=== PATIENT | male | born 1930 | race Caucasian/White ===

== ENCOUNTER 2016-11-16 13:36 | Inpatient (IN) | payer OTHER ==
[~2016-11-16] VITALS: Ht 172.7 cm; Wt 87.0 kg
[~2016-11-16 13:36] MED LIST: ASPIR 8181 M1 PO; BACTRIM,SEPT1 TABLET PO; CARVEDILOL3.125 MG PO; CELEBREX200 MG PO; CELECOXIB200 MG PO; CENTRUM SILVER1 EAC1 PO; CILOSTAZOL50 MG PO; CINNAMON PLUS1 EACH PO; COSAMIN ASU CA1 EAC1 PO; COSAMIN ASU CA1 EACH PO; CRESTOR20 MG PO; ESCITALOPRAM OX20 MG PO; FERROUS SULFAT325 MG PO; FISH OIL 1,0001 EAC8 PO; HYDROCODON-ACE1 EAC7 PO; IRON325 M1 PO; LEXAPRO10 MG PO; LISINOPRIL20 MG PO; LO-DOSE ASPIRIN81 M1 PO; LOSARTAN POTAS100 MG PO; LOVENOX40 MG/0.4 SC; MYSOLINE50 MG PO; OMEGA-3 FISH O1 EAC6 PO; OS-CAL 500+D T1 EAC1 PO; PEN-VEE K,VEET500 MG PO; PLAVIX75 MG PO; PRESERVISIO1 CAPSULE PO; PRINIVIL20 MG PO; SENNA PLUS TAB1 EACH PO; VITAMIN B-1100 MG PO; XARELTO20 MG PO
[2016-11-16 14:38] LABS: HEMATOCRIT 44.8 % (38.0-50.0); MCH 30.6 PG (29.0-34.0); MCHC 34.4 G/DL (30.0-36.0); MCV 88.9 FL (86-99); MEAN PLAT.VOLUME 9.5 uM^3 (9.0-12.4); PLATELET COUNT 197 K/uL (156-360); RBC DIS.WIDTH-CV 13.4 % (11.8-14.6); RBC DIS.WIDTH-SD 43.3 % (39-53); RED BLOOD COUNT 5.04 M/uL (4.00-5.50); WHITE BLOOD COUNT 7.7 K/uL (4.1-10.2)
[2016-11-16 14:46] LABS: CHLORIDE 105 mEq/L (99-109); POTASSIUM 4.6 mEq/L (3.7-5.4); SODIUM 139 mEq/L (136-147)
[2016-11-16 14:48] LABS: GLUCOSE 112 mg/dL (70-99)
[2016-11-16 14:49] LABS: ANION GAP 12 MEQ/L (2-14)
[2016-11-16 14:52] LABS: GFR ESTIMATE (CALCULATED) > 59 mL/min/; UREA NITROGEN (BUN) 24 mg/dL (9-23)
[2016-11-16 14:59] LABS: TROP-I INTERPRETATION NEGATIVE; TROPONIN-I 0.02 ng/mL (0.0-0.30)
[2016-11-16] MEDS ORDERED: LOSARTAN POTASS50 MG PO (18:02)
[2016-11-16 21:49] VITALS: BP 103/69
[2016-11-16 22:12] LABS: TROP-I INTERPRETATION NEGATIVE; TROPONIN-I 0.03 ng/mL (0.0-0.30)
[2016-11-17] VITALS (7 sets, daily range): BP systolic 103–142; BP diastolic 59–86
[2016-11-17 03:58] LABS: TROP-I INTERPRETATION NEGATIVE; TROPONIN-I 0.04 ng/mL (0.0-0.30)
[2016-11-18 03:29] VITALS: BP 127/86
[2016-11-18 05:44] LABS: ANION GAP 4 MEQ/L (2-14); CHLORIDE 105 MEQ/L (99-109); GFR ESTIMATE (CALCULATED) > 59 mL/min/; GLUCOSE 110 mg/dL (70-99); POTASSIUM 4.5 MEQ/L (3.7-5.4); SAMPLE HEMOLYSIS CHECK 0; SAMPLE ICTERIC CHECK 0; SAMPLE LIPEMIA CHECK 0; SODIUM 139 MEQ/L (136-147); UREA NITROGEN (BUN) 22 mg/dL (9-23)
[2016-11-18 07:40] VITALS: BP 153/92
[2016-11-18 11:46] VITALS: BP 138/91
[2016-11-18 16:00] VITALS: BP 160/72
[2016-11-18] MEDS ORDERED: DIGOXIN125 MCG PO (17:27)
== END 2016-11-18 18:27 | disposition home or self-care (01) | DRG 310 ==
LOC: EME 13:36 → 4EAST 16:17 → EDOF 16:17 → ENRESERV 16:23 → 4EAST 21:09
PROVIDERS: Family Medicine; Internal Medicine; Physician Assistant
DX: I48.91 Unspecified atrial fibrillation (principal); R00.0 Tachycardia, unspecified; K21.9 Gastro-esophageal reflux disease without esophagitis; I25.10 Atherosclerotic heart disease of native coronary artery without angina pectoris; I10 Essential (primary) hypertension; F32.9 Major depressive disorder, single episode, unspecified; R53.1 Weakness; E78.5 Hyperlipidemia, unspecified; Z96.651 Presence of right artificial knee joint; Z96.641 Presence of right artificial hip joint; I73.9 Peripheral vascular disease, unspecified; M19.90 Unspecified osteoarthritis, unspecified site; Z95.1 Presence of aortocoronary bypass graft; Z79.01 Long term (current) use of anticoagulants; Z87.891 Personal history of nicotine dependence
CPT/HCPCS: 71010; 80048; 83735; 84443; 84484; 85027; 93005; 93306; 94799; 99281; 99285; G0378; J1160; J7030; J7050